=== PATIENT | male | born 1980 | race Caucasian/White ===

== ENCOUNTER 2016-08-26 18:16 | Emergency (ER) | payer SELFPAY ==
[2016-08-26 18:26] VITALS: BP 144/88
[2016-08-26] MEDS ORDERED: IBUPROFEN 800 MG TABLET PO ONE (18:28)
--- NOTE | 2016-08-26 18:28 | ER Document Report ---
ED Medical Screen (RME) - General Stated Complaint: TOOTH PAIN Notes: one week ago bottom right broken teeth with dental lizzette patient has an appointment with dentist on tuesday/tuesday I have greeted and performed a rapid initial assessment of this patient. A comprehensive ED assessment and evaluation of the patient, analysis of test results and completion of the medical decision making process will be conducted by additional ED providers. Physical Exam - Vital signs Vitals: Temp Pulse Resp BP Pulse Ox 97.9 F 79 16 144/88 H 99 08/26/16 18:25 08/26/16 18:25 08/26/16 18:25 08/26/16 18:25 08/26/16 18:25 Course - Vital Signs Vital signs: Temp Pulse Resp BP Pulse Ox 97.9 F 79 16 144/88 H 99 08/26/16 18:25 08/26/16 18:25 08/26/16 18:25 08/26/16 18:25 08/26/16 18:25
--- NOTE | 2016-08-26 18:57 | ER Document Report ---
ED General - General Chief Complaint: Toothache Stated Complaint: TOOTH PAIN Time seen by provider: 18:51 Mode of Arrival: Ambulatory Information source: Patient Notes: 36-year-old male complains about one week history of pain to right lower tooth. He reports he has a dental appointment in 5 days for evaluation of this. He denies fever, chills, nausea, vomiting, or other symptoms. He reports he had several other dental extractions in the past but no other teeth are bothering him now. Physical Exam: General: Alert, appears well. HEENT: Normocephalic. Atraumatic. PERRLA. Extraocular movements intact. Oropharynx clear. Multiple dental extractions. She has obvious fracture to tooth in the left upper jaw but this area is not tender. Extremities are moist. Patient has no erythema or swelling around the right lower jaw but it is tender to palpation diffusely area and there is no Kiet's angina or submental swelling to suggest deep tissue infection. There is no stridor or hoarseness or drooling. Neck: Supple. Non-tender. No adenopathy Respiratory: No respiratory distress. Clear and equal breath sounds bilaterally. Cardiovascular: Regular rate and rhythm. Abdominal: Normal Inspection. Soft, non-tender. No distension. Normal Bowel Sounds. Back: Non-tender. No deformity or step off. Extremities: Moves all four extremities. No gross deformity Neurological: Speech clear mentation normal Psychological: Normal affect. Normal Mood. Skin: Warm. Dry. Normal color. TRAVEL OUTSIDE OF THE [place] IN LAST 30 DAYS: No - Related Data Allergies/Adverse Reactions: No Known Allergies Allergy (Verified 08/26/16 18:30) Past Medical History - Social History Smoking Status: Current Every Day Smoker Chew tobacco use (# tins/day): No Frequency of alcohol use: None Drug Abuse: None Family History: Reviewed & Not Pertinent Patient has suicidal ideation: No Patient has homicidal ideation: No - Past Medical History Cardiac Medical History: Reports: None Renal/ Medical History: Denies: Hx Peritoneal Dialysis Review of Systems - Review of Systems Constitutional: denies: Chills, Fever EENT: denies: Ear pain, Throat pain Cardiovascular: denies: Chest pain Respiratory: denies: Cough, Short of breath Gastrointestinal: denies: Abdominal pain, Nausea, Vomiting Genitourinary: denies: Burning Musculoskeletal: denies: Back pain Skin: denies: Rash Hematologic/Lymphatic: denies: Swollen glands Neurological/Psychological: denies: Weakness, Numbness Physical Exam - Vital signs Vitals: Temp Pulse Resp BP Pulse Ox 97.9 F 79 16 144/88 H 99 08/26/16 18:25 08/26/16 18:25 08/26/16 18:25 08/26/16 18:25 08/26/16 18:25 Course - Re-evaluation Re-evalutation: 08/26/16 18:55 Patient has dental pain concerning for possible infection though there is no obvious swelling at this point. He'll be discharged on antibiotics and medication pain is counseled to follow with his dentist as scheduled next week - Vital Signs Vital signs: Temp Pulse Resp BP Pulse Ox 97.9 F 79 16 144/88 H 99 08/26/16 18:25 08/26/16 18:25 08/26/16 18:25 08/26/16 18:25 08/26/16 18:25 Discharge - Discharge Clinical Impression: Toothache Condition: Stable Disposition: HOME, SELF-CARE Additional Instructions: Toothache Your pain is due to dental decay. The tooth must be repaired in order for you to feel better. You will, therefore, be referred to a dentist. Severe swelling or drainage around a tooth usually means a deep dental abscess. This also requires evaluation and treatment by the dentist, but antibiotics may be prescribed while awaiting dental treatment. You should be rechecked immediately if you develop major swelling of the face, increasing pain, a lump in the jaw or gums, headache, or fever. Keep your dental appointment next week as scheduled Prescriptions: Penicillin V Potassium [Penicillin Vk 500 mg Tablet] 500 mg PO BID #20 tablet Tramadol HCl 50 mg PO BID #10 tablet
== END 2016-08-26 19:09 | disposition home or self-care (01) ==
LOC: ER 18:16
DX: K08.89 Other specified disorders of teeth and supporting structures (principal); F17.210 Nicotine dependence, cigarettes, uncomplicated
CPT/HCPCS: 99282

== ENCOUNTER 2016-09-09 06:39 | Emergency (ER) | payer SELFPAY ==
--- NOTE | 2016-09-09 10:06 | ER Document Report ---
HPI - HPI Patient complains to provider of: dental pain Onset: Last week Onset/Duration: Persistent Quality of pain: Achy, Sharp Pain Level: 5 Context: Patient complains of persistent dental pain that started last week. Patient was evaluated in emergency department and placed on an antibiotic for several days. Patient states that he only had the antibiotic prescription for about 4 days. Patient states that he did not get his tax refund check and he was unable to follow-up with the dentist. Patient complains of right lower jaw swelling. No fever. Associated Symptoms: Other - Right lower jaw tenderness Exacerbated by: Denies Relieved by: Denies Similar symptoms previously: Yes Recently seen / treated by doctor: No - ROS ROS below otherwise negative: Yes Systems Reviewed and Negative: Yes All other systems reviewed and negative - CONSTITUTIONAL Constitutional: DENIES: Fever - EENT Notes: Dental pain - GASTROINTESTINAL Gastrointestinal: DENIES: Nausea, Patient vomiting - DERM Skin Color: Normal Skin Problems: None Past Medical History - General Information source: Patient - Social History Smoking Status: Current Every Day Smoker Frequency of alcohol use: Rare Drug Abuse: None Occupation: none Lives with: Family Family History: Reviewed & Not Pertinent Patient has suicidal ideation: No Patient has homicidal ideation: No - Medical History Medical History: Other - Psoriasis Renal/ Medical History: Denies: Hx Peritoneal Dialysis Past Surgical History: Reports: Hx Appendectomy - Immunizations Hx Diphtheria, Pertussis, Tetanus Vaccination: Yes Vertical Provider Document - CONSTITUTIONAL Agree With Documented VS: Yes Exam Limitations: No Limitations General Appearance: WD/WN, No Apparent Distress - INFECTION CONTROL TRAVEL OUTSIDE OF THE [place] IN LAST 30 DAYS: No - HEENT HEENT: Atraumatic, Normocephalic. negative: Pharyngeal Exudate, Pharyngeal Tenderness, Pharyngeal Erythema, Tympanic Membrane Red, Tympanic Membrane Bulging Mouth Diagram: 1 - Tenderness, gingival induration, no sublingual or submental swelling. - NECK Neck: Normal Inspection, Supple. negative: Lymphadenopathy-Left, Lymphadenopathy-Right - RESPIRATORY Respiratory: Breath Sounds Normal, No Respiratory Distress, Chest Non-Tender O2 Sat by Pulse Oximetry: 99 - CARDIOVASCULAR Cardiovascular: Regular Rate, Regular Rhythm, No Murmur - BACK Back: Normal Inspection - MUSCULOSKELETAL/EXTREMETIES Musculoskeletal/Extremeties: BROCK MAY - NEURO Level of Consciousness: Awake, Alert, Appropriate Motor/Sensory: No Motor Deficit - DERM Integumentary: Warm, Dry, No Rash Course - Vital Signs Vital signs: Temp Pulse Resp BP Pulse Ox 98.1 F 70 18 158/86 H 99 09/09/16 06:43 09/09/16 06:43 09/09/16 06:43 09/09/16 06:43 09/09/16 06:43 Discharge - Discharge Clinical Impression: Infected dental caries Condition: Stable Disposition: HOME, SELF-CARE Instructions: Toothache ([facility]), Clindamycin ([facility]), Oral Narcotic Medication ([facility] ), Dental Infection or Abscess ([facility]), Dentist Additional Instructions: Return immediately for any new or worsening symptoms Followup with your dental care provider, call tomorrow to make a followup appointment Prescriptions: Clindamycin HCl [Cleocin 300 mg Capsule] 300 mg PO TID #21 capsule Naproxen [Naprosyn 250 Nmg Tablet] 1 tab PO BID #14 tablet Oxycodone HCl/Acetaminophen [Percocet 5-325 mg Tablet] 1 tab PO ASDIR PRN #15 tablet PRN Reason: Forms: Elevated Blood Pressure Referrals: [facility] [Provider Group] - Follow up as needed [facility] [Provider Group] - Follow up as needed
[2016-09-09 10:27] VITALS: BP 148/94
== END 2016-09-09 10:20 | disposition home or self-care (01) ==
LOC: ER 06:39
DX: K02.9 Dental caries, unspecified (principal); K04.7 Periapical abscess without sinus; F17.200 Nicotine dependence, unspecified, uncomplicated; L40.9 Psoriasis, unspecified
CPT/HCPCS: 99282

== ENCOUNTER 2017-05-12 15:03 | Emergency (ER) | payer SELFPAY ==
[2017-05-12 15:07] VITALS: BP 133/70
[2017-05-12] MEDS ORDERED: LIDOCAINE 1% INJ-PF (10 MG/ML) 30 ML SDV INJ ONE (15:49)
--- NOTE | 2017-05-12 15:57 | ER Document Report ---
ED Hand/Wrist Injury - General Chief Complaint: Laceration Stated Complaint: WRIST LACERATION Time Seen by Provider: 05/12/17 15:29 Mode of Arrival: Ambulatory Information source: Patient Notes: 37-year-old male presents to ED for laceration to his right wrist. He states he was trying to clean some trash up for his mother when he reached under the deck and caught his arm on a metal bracket under the deck causing a laceration. He states his last tetanus was about 6 months ago. He states his the mother wrapped his arm will good when it happened. TRAVEL OUTSIDE OF THE [place] IN LAST 30 DAYS: No - HPI Injury to: Wrist Onset: This afternoon Where: Home, Outdoors Timing: Still present Quality of pain: Sharp Severity: Mild Pain Level: 2 Context: Laceration - Related Data Allergies/Adverse Reactions: No Known Allergies Allergy (Verified 05/12/17 15:06) Past Medical History - General Information source: Patient - Social History Smoking Status: Current Every Day Smoker Cigarette use (# per day): Yes - Pack per day Chew tobacco use (# tins/day): No Smoking Education Provided: Yes - Less than 2 minutes Frequency of alcohol use: Rare Drug Abuse: None Occupation: [employer] Lives with: Family, Spouse/Significant other Family History: Arthritis, COPD, CVA, DM, Hypertension, Malignancy. denies: CAD , Hyperlipidemia, Thyroid Disfunction Patient has suicidal ideation: No Patient has homicidal ideation: No - Past Medical History Cardiac Medical History: Reports: None Pulmonary Medical History: Reports: None EENT Medical History: Reports: None Neurological Medical History: Reports: Hx Migraine Endocrine Medical History: Reports: None Renal/ Medical History: Reports: Hx Kidney Stones Malignancy Medical History: Reports None GI Medical History: Reports: None Musculoskeltal Medical History: Reports Hx Arthritis, Reports Hx Musculoskeletal Deformity, Reports Hx Musculoskeletal Trauma Skin Medical History: Reports None Psychiatric Medical History: Reports: Hx Attention Deficit Hyperactivity Disorder, Hx Post Traumatic Stress Disorder Traumatic Medical History: Reports: Hx Fractures - multiple Infectious Medical History: Reports: None Past Surgical History: Reports: Hx Appendectomy, Hx Orthopedic Surgery - skull repair - Immunizations Immunizations up to date: Yes Hx Diphtheria, Pertussis, Tetanus Vaccination: Yes - 2017 Review of Systems - Review of Systems Constitutional: No symptoms reported EENT: No symptoms reported Cardiovascular: No symptoms reported Respiratory: No symptoms reported Gastrointestinal: No symptoms reported Genitourinary: No symptoms reported Male Genitourinary: No symptoms reported Musculoskeletal: No symptoms reported Skin: Other - laceration right wrist Hematologic/Lymphatic: No symptoms reported Neurological/Psychological: No symptoms reported -: Yes All other systems reviewed and negative Physical Exam - Vital signs Vitals: Temp Pulse Resp BP Pulse Ox 97.7 F 93 20 133/70 H 98 05/12/17 15:06 05/12/17 15:06 05/12/17 15:06 05/12/17 15:06 05/12/17 15:06 Interpretation: Normal - General General appearance: Appears well, Alert - HEENT Head: Normocephalic, Atraumatic Eyes: Normal Pupils: PERRL - Respiratory Respiratory status: No respiratory distress Chest status: Nontender Breath sounds: Normal Chest palpation: Normal - Cardiovascular Rhythm: Regular Heart sounds: Normal auscultation Murmur: No - Abdominal Inspection: Normal Distension: No distension Bowel sounds: Normal Tenderness: Nontender Organomegaly: No organomegaly - Back Back: Normal, Nontender - Extremities General upper extremity: Normal color, Normal ROM, Normal temperature General lower extremity: Normal inspection, Nontender, Normal color, Normal ROM , Normal temperature, Normal weight bearing. No: Philippe's sign Wrist: Tender, Laceration Hand: Normal - Neurological Neuro grossly intact: Yes Cognition: Normal Orientation: AAOx4 Bath Coma Scale Eye Opening: Spontaneous Dusty Coma Scale Verbal: Oriented Dusty Coma Scale Motor: Obeys Commands Dusty Coma Scale Total: 15 Speech: Normal Motor strength normal: LUE, RUE, LLE, RLE Sensory: Normal - Psychological Associated symptoms: Normal affect, Normal mood - Skin Skin Temperature: Warm Skin Moisture: Dry Skin Color: Normal Course - Re-evaluation Re-evalutation: 05/12/17 16:41 Patient treated with Keflex prophylactically for this laceration to his wrist due to it being into a piece of metal under the house when cleaning up trash. Patient was also treated with a cock-up splint to prevent stress on the laceration and sutures. Patient stated his tetanus was within the year 2017 so he does not need a tetanus shot at this time. - Vital Signs Vital signs: Temp Pulse Resp BP Pulse Ox 97.7 F 93 20 133/70 H 98 05/12/17 15:06 05/12/17 15:06 05/12/17 15:06 05/12/17 15:06 05/12/17 15:06 Procedures - Immobilization Right Wrist Immobilizer type: Cock-up Performed by: RN Post-Proc Neuro Vasc Exam: Normal Alignment checked and good: Yes - Laceration/Wound Repair Right Wrist Time completed: 16:40 Wound length (cm): 3 Wound's Depth, Shape: Into muscle, Linear Laceration pre-procedure: Sterile PPE donned, Sterile drapes applied, Shur- Clens applied Anesthetic type: 1% Lidocaine Volume Anesthetic (mLs): 6 Wound explored: No foreign body removed, Contaminated Irrigated w/ Saline (mLs): 400 Wound Repaired With: Sutures Suture Size/Type: 4:0 Number of Sutures: 5 Layer Closure?: No Post-procedure wound care: Sterile dressing applied, Splint applied Post-procedure NV exam normal: Yes Complications: No Discharge - Discharge Clinical Impression: Laceration of right wrist Qualifiers: Encounter type: initial encounter Qualified Code(s): S61.511A - Laceration without foreign body of right wrist, initial encounter Condition: Stable Disposition: HOME, SELF-CARE Instructions: Family Physicians / Practices Additional Instructions: Hand Laceration A laceration on the hand can present special problems. It may be difficult to keep the wound dry. Motion of the fingers can disturb the healing edges. Your work may involve exposure to damaging chemicals or water. Keep the wound clean and dry. If you can't keep the cut dry, undisturbed, and free of chemical exposure, please discuss this with the doctor. If any water or chemical gets onto the dressing, remove it, blot the wound dry, then apply a fresh bandage. Dressings should be changed every day. If you feel the stitches pulling as you move the hand, a splint or other form of protection is needed. If any signs of infection occur (swelling, redness, increasing tenderness, red streaks, tender lumps in the armpit, or fever), see the doctor immediately. SOAP CLEANSING: Gently wash the wound daily using a mild soap (like Ivory, Phisoderm, Neutrogena). Use warm water, rubbing gently until all debris, ooze, and crusting have been washed from the wound. Allow to dry briefly (about 10 minutes) after cleaning. Repeat this cleansing at least three times a day for the first two days and then once or twice a day. ANTIBIOTIC OINTMENT PROTECTION: Your wounds are such that dressing them is not practical or optional. After cleansing, you should apply a thin coating of antibiotic ointment ( Bacitracin, not Neosporin) to the wounds at least three times daily. This lessens infection risk, and may decrease the amount of scarring. Use a q-tip or dull butter knife, not your finger, to apply this ointment. Any debris or ooze which builds up in the ointment should be gently rubbed off with a sterile gauze pad. Harder crusting may need to be gently scrubbed off with a clean wash cloth with soap and warm water, perhaps applying a warm, wet wash cloth to the wound for ten minutes first. Development of redness, severe itching, or blistering may mean allergy to the ointment. See the doctor. 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 PROPHYLACTIC ANTIBIOTIC: The antibiotics which have been prescribed are designed to decrease the risk of infection. Only certain types of wounds benefit from this -- the typical cut, scrape, or burn DOES NOT require antibiotics. Of course, infection can still occur despite the use of prophylactic antibiotics. Your wound will heal with less chance of an infectious complication if you take the medication as directed. The most important dose is the FIRST dose, so don't delay filling the prescription! FOLLOW-UP CARE: Please return in ___2__ days for an infection check and dressing change. Your sutures should be removed in ____10_ days. To facilitate a timely removal of your sutures, you may return to the Emergency Department at [facility]. You do not need to call for an appointment, but the best time to come in for suture removal is early in the morning. If you have been referred to another physician for follow-up care, call that physicians office for an appointment as you were instructed. If you experience a significant change in your laceration, or if you are concerned there may be an infection (swelling, redness, drainage, increasing tenderness, red streaks, tender lumps in the armpit or groin above the laceration, or fever) , return to the Emergency Department immediately re-evaluation. Prescriptions: Cephalexin Monohydrate [Keflex 500 mg Capsule] 500 mg PO Q6H 5 Days capsule Forms: Elevated Blood Pressure, Smoking Cessation Education, Return to Work
[2017-05-12] MEDS ORDERED: CEPHALEXIN 500 MG CAPSULE PO ONE (16:35)
== END 2017-05-12 16:52 | disposition home or self-care (01) ==
LOC: ER 15:03
PROC: 0HQDXZZ Repair Right Lower Arm Skin, External Approach (ICD-10-PCS; principal; 2017-05-12)
DX: S61.511A Laceration without foreign body of right wrist, initial encounter (principal); F17.210 Nicotine dependence, cigarettes, uncomplicated; W26.8XXA Contact with other sharp object(s), not elsewhere classified, initial encounter; Y92.007 Garden or yard of unspecified non-institutional (private) residence as the place of occurrence of the external cause; Z87.442 Personal history of urinary calculi
CPT/HCPCS: 99282; 12002; L3908; J3490

== ENCOUNTER 2017-11-17 17:21 | Emergency (ER) | payer MEDICAID ==
[2017-11-17 17:31] VITALS: BP 126/66
[2017-11-17] MEDS ORDERED: LIDOCAINE 2% VISCOUS SOLN 20 ML UDCUP PO ONE (17:31)
--- NOTE | 2017-11-17 17:32 | ER Document Report ---
HPI - HPI Pain Level: 4 Notes: Patient is a 37-year-old male with a history of anxiety and depression who presents to the ED complaining of a fractured tooth to #61 day. Patient states that the tooth is still loose half of it is intact. He has not had any abscess or purulent discharge. Patient has not been able to chew on food because of the pain, but is able to intake liquids and shakes. The pain does not radiate. He denies any drug allergies. Denies any headache, fever, neck pain, URI, sore throat, chest pain, palpitations, syncope, cough, shortness of breath, wheeze, dyspnea, abdominal pain, nausea/vomiting/diarrhea, urinary retention, dysuria, hematuria, or rash. - ROS Systems Reviewed and Negative: Yes All other systems reviewed and negative Past Medical History - Social History Smoking Status: Never Smoker Family History: Arthritis, COPD, CVA, DM, Hypertension, Malignancy Neurological Medical History: Reports: Hx Migraine Renal/ Medical History: Reports: Hx Kidney Stones. Denies: Hx Peritoneal Dialysis Musculoskeltal Medical History: Reports Hx Arthritis, Reports Hx Musculoskeletal Deformity, Reports Hx Musculoskeletal Trauma Psychiatric Medical History: Reports: Hx Attention Deficit Hyperactivity Disorder, Hx Post Traumatic Stress Disorder Traumatic Medical History: Reports: Hx Fractures - multiple Past Surgical History: Reports: Hx Appendectomy, Hx Orthopedic Surgery - skull repair - Immunizations Immunizations up to date: Yes Hx Diphtheria, Pertussis, Tetanus Vaccination: Yes - 2016 Vertical Provider Document - CONSTITUTIONAL Agree With Documented VS: Yes Notes: PHYSICAL EXAMINATION: GENERAL: Well-appearing, well-nourished and in no acute distress. HEAD: Atraumatic, normocephalic. EYES: Pupils equal round and reactive to light, extraocular movements intact, sclera anicteric, conjunctiva are normal. ENT: EAC clear b/l. TM's intact b/l without erythema, fluid, or perforation. Nares patent and without discharge. oropharynx clear without exudates. No tonsilar hypertrophy or erythema. Moist mucous membranes. No sinus tenderness. Uvula midline. No palatine shift. No tongue protrusion. No respiratory compromise. Mouth: Poor dentition. + moderate decay and mild gingivitis. No obvious abscess or discharge noted. No facial swelling. + tenderness to tooth #6 and it is loose. NECK: Normal range of motion, supple without lymphadenopathy. No rigidity/ meningismus. LUNGS: Breath sounds clear to auscultation bilaterally and equal. No wheezes rales or rhonchi. HEART: Regular rate and rhythm without murmurs, rubs, gallops. NEUROLOGICAL: Normal speech, normal gait. Normal sensory, motor exams PSYCH: Normal mood, normal affect. SKIN: Warm, Dry, normal turgor, no rashes or lesions noted. - INFECTION CONTROL TRAVEL OUTSIDE OF THE [place] IN LAST 30 DAYS: No Course - Re-evaluation Re-evalutation: 11/17/17 17:40 Patient is an afebrile, well-hydrated, 37-year-old male who presents to the ED with dental pain #6. Vitals are acceptable. Patient's tooth is cracked and loose as well as rotted. Viscous lidocaine given today. I will send him home with a prescription for penicillin as well. Advised patient that he needs to follow-up with a dentist tomorrow for extraction. Low suspicion for any meningitis, sepsis, peritonsillar/pharyngeal abscess, respiratory compromise, Kiet's, temporal arteritis, or other emergent systemic condition at this time. Patient is aware this condition can change from initial presentation and he needs to monitor symptoms closely. Conservative measures otherwise for symptoms. Call to schedule an appointment with a dentist for further evaluation and management. Recheck with your PCM this week as well. Return to the ED with any worsening/concerning symptoms otherwise as reviewed in discharge. Patient is in agreement. Eating - Vital Signs Vital signs: Temp Pulse Resp BP Pulse Ox 98.8 F 92 16 126/66 H 97 11/17/17 17:30 11/17/17 17:30 11/17/17 17:30 11/17/17 17:30 11/17/17 17:30 Discharge - Discharge Clinical Impression: Pain, dental Condition: Stable Disposition: HOME, SELF-CARE Instructions: Penicillin V K ([facility]), Toothache ([facility]) Additional Instructions: [place] and floss twice daily Maintain fluid intake Take antibiotics as directed Mouthwash, salt water gargles, peroxide rinse as needed Tylenol/ibuprofen as needed Recheck with PCM this week Call today/tomorrow and schedule an appointment with your dentist for further evaluation Return to the ED with any worsening symptoms and/or development of fever, headache, facial swelling, swelling of lips/tongue/throat, trouble swallowing, drooling, hoarseness, neck pain/stiffness, chest pain, palpitations, syncope, shortness of breath, trouble breathing, abdominal pain, n/v/d, numbness/tingling , or other worsening symptoms that are concerning to you. Prescriptions: Penicillin V Potassium [Penicillin Vk 250 mg Tablet] 500 mg PO BID #40 tablet Forms: Elevated Blood Pressure, Smoking Cessation Education Referrals: [facility] [Provider Group] - Follow up as needed SARA HONG MD [ACTIVE STAFF] - Follow up as needed
== END 2017-11-17 17:53 | disposition home or self-care (01) ==
LOC: ER 17:21
DX: K08.9 Disorder of teeth and supporting structures, unspecified (principal); Z87.442 Personal history of urinary calculi
CPT/HCPCS: 99282; J3490

== ENCOUNTER 2017-12-08 15:53 | Emergency (ER) | payer MEDICAID ==
[2017-12-08] MEDS ORDERED: FENTANYL CITRATE INJ/PF 100 MCG/2 ML AMPUL IV ONE (16:37)
--- NOTE | 2017-12-08 16:45 | ER Document Report ---
ED Medical Screen (RME) - General Chief Complaint: Fall Injury Stated Complaint: FALL/ BACK PAIN Time Seen by Provider: 12/08/17 16:32 Notes: RAPID MEDICAL EVALUATION DISCLOSURE I have seen this patient as part of a Rapid Medical Evaluation and, if applicable, placed any initially appropriate orders. The patient will be seen and fully evaluated, including a full history and physical exam, by a provider ( in Main ED or Fast Track) when a room becomes available. 37-year-old male here status post fall from a roof 20 feet high just prior to arrival. He landed on his feet however fell backwards onto his back and since then has been having severe mid and low back pain since then. He did not hit his head/neck, he reports. He does not have any chest pain shortness of breath neck pain headache foot pain numbness tingling weakness. Tried taking a BC powder for the pain. EXAM Head atraumatic No cervical midline spine TTP Exquisite midline thoracic (T3-T12) and rendon lumbar midline spine TTP Strength 5/5 with intact sensation BLEs TRAVEL OUTSIDE OF THE [place] IN LAST 30 DAYS: No - Related Data Allergies/Adverse Reactions: No Known Allergies Allergy (Verified 12/08/17 16:29) Past Medical History Neurological Medical History: Reports: Hx Migraine Renal/ Medical History: Reports: Hx Kidney Stones. Denies: Hx Peritoneal Dialysis Musculoskeltal Medical History: Reports Hx Arthritis, Reports Hx Musculoskeletal Deformity, Reports Hx Musculoskeletal Trauma Psychiatric Medical History: Reports: Hx Attention Deficit Hyperactivity Disorder, Hx Post Traumatic Stress Disorder Traumatic Medical History: Reports: Hx Fractures - multiple Past Surgical History: Reports: Hx Appendectomy, Hx Orthopedic Surgery - skull repair - Immunizations Immunizations up to date: Yes Hx Diphtheria, Pertussis, Tetanus Vaccination: Yes - 2016 Physical Exam - Vital signs Vitals: Temp Pulse Resp BP Pulse Ox 97.9 F 91 16 134/82 H 95 12/08/17 16:13 12/08/17 16:13 12/08/17 16:13 12/08/17 16:13 12/08/17 16:13 Course - Vital Signs Vital signs: Temp Pulse Resp BP Pulse Ox 97.9 F 91 16 134/82 H 95 12/08/17 16:13 12/08/17 16:13 12/08/17 16:13 12/08/17 16:13 12/08/17 16:13
--- NOTE | 2017-12-08 17:18 | RADIOLOGY REPORT (SQ) ---
EXAM DESCRIPTION: CT CERVICAL SPINE WITHOUT COMPLETED DATE/TIME: 12/08/2017 5:06 pm REASON FOR STUDY: 20 foot fall; eval fx COMPARISON: None. TECHNIQUE: Axial images acquired through the cervical spine without intravenous contrast. Images re viewed with lung, soft tissue and bone windows. Reconstructed coronal and sagittal MPR images review ed. Images stored on PACS. All CT scanners at this facility use dose modulation, iterative reconstruction, and/or weight based d osing when appropriate to reduce radiation dose to as low as reasonably achievable (ALARA). [facility]: Dose Right [facility]: CareDose [facility]: Dose Right [facility]: Teradose 4D [facility]: Smart [employer] RADIATION DOSE: CT Rad equipment meets quality standard of care and radiation dose reduction techniq ues were employed. CTDIvol: 18.3 mGy. DLP: 386 mGy-cm. mGy. LIMITATIONS: None. FINDINGS: ALIGNMENT: Anatomic. MINERALIZATION: Normal. VERTEBRAL BODIES: No fractures or dislocation. DISCS: C5-6 degenerative changes. FACETS, LATERAL MASSES, POSTERIOR ELEMENTS: No fractures. No dislocation. No acute findings. HARDWARE: None in the spine. VISUALIZED RIBS: No fractures. LUNG APICES AND SOFT TISSUES: No significant or acute findings. OTHER: No other significant finding. IMPRESSION: NO ACUTE OR SIGNIFICANT FINDINGS IN THE CERVICAL SPINE. TECHNICAL DOCUMENTATION: JOB ID: [id number] Quality ID # [id number]: Final reports with documentation of one or more dose reduction techniques (e.g., Au tomated exposure control, adjustment of the mA and/or kV according to patient size, use of iterative reconstruction technique) 2010 [employer]- All Rights Reserved Reading location - IP/workstation name: [email or web address]
--- NOTE | 2017-12-08 17:20 | RADIOLOGY REPORT (SQ) ---
EXAM DESCRIPTION: CT THORACIC SPINE WITHOUT COMPLETED DATE/TIME: 12/08/2017 5:06 pm REASON FOR STUDY: 20 foot fall onto feet; eval vertebral fx COMPARISON: None. TECHNIQUE: Axial images acquired through the thoracic spine without intravenous contrast. Images re viewed with lung, soft tissue and bone windows. Reconstructed coronal and sagittal MPR images review ed. Images stored on PACS. All CT scanners at this facility use dose modulation, iterative reconstruction, and/or weight based d osing when appropriate to reduce radiation dose to as low as reasonably achievable (ALARA). [facility]: Dose Right [facility]: CareDose [facility]: Dose Right [facility]: Teradose 4D [facility]: Smart [employer] RADIATION DOSE: CT Rad equipment meets quality standard of care and radiation dose reduction techniq ues were employed. CTDIvol: 97.5 mGy. DLP: 3478 mGy-cm. mGy. LIMITATIONS: None. FINDINGS: VISUALIZED LUNGS: No acute opacities. No pneumothorax. SOFT TISSUES: No soft tissue swelling. No masses. VERTEBRAL BODIES: No fractures. No dislocation. No acute findings. DISCS: No significant disc space narrowing. ALIGNMENT: Normal. TRANSVERSE PROCESSES, POSTERIOR ELEMENTS: No fractures. No dislocation. No acute findings. HARDWARE: None in the spine. VISUALIZED RIBS: No fractures. OTHER: No other significant finding. IMPRESSION: NORMAL CT OF THE THORACIC SPINE. TECHNICAL DOCUMENTATION: JOB ID: [id number] Quality ID # [id number]: Final reports with documentation of one or more dose reduction techniques (e.g., Au tomated exposure control, adjustment of the mA and/or kV according to patient size, use of iterative reconstruction technique) 2010 [employer]- All Rights Reserved Reading location - IP/workstation name: [email or web address]
--- NOTE | 2017-12-08 17:23 | RADIOLOGY REPORT (SQ) ---
EXAM DESCRIPTION: CT LUMBAR SPINE WITHOUT COMPLETED DATE/TIME: 12/08/2017 5:06 pm REASON FOR STUDY: 20 foot fall onto feet; eval vertebral fx COMPARISON: None. TECHNIQUE: Axial images acquired through the lumbar spine without intravenous contrast. Images revi ewed with lung, soft tissue and bone windows. Reconstructed coronal and sagittal MPR images reviewed . All images stored on PACS. All CT scanners at this facility use dose modulation, iterative reconstruction, and/or weight based d osing when appropriate to reduce radiation dose to as low as reasonably achievable (ALARA). [facility]: Dose Right [facility]: CareDose [facility]: Dose Right [facility]: Teradose 4D [facility]: [employer] RADIATION DOSE: mGy. LIMITATIONS: None. FINDINGS: SEGMENTATION: Normal. No transitional anatomy. ALIGNMENT: Normal. VERTEBRAL BODIES: No fractures. No dislocation. No acute findings. DISCS: No significant protrusions. Study limited by lack of intrathecal contrast. PEDICLES, TRANSVERSE PROCESSES: No fractures. No dislocation. No acute findings. FACETS, POSTERIOR ELEMENTS: No fractures. No dislocation. No spinal stenosis. HARDWARE: None in the spine. VISUALIZED RIBS: No fractures. SOFT TISSUES: No significant or acute finding in adjacent soft tissues. OTHER: No other significant finding. IMPRESSION: NORMAL CT OF THE LUMBAR SPINE. TECHNICAL DOCUMENTATION: JOB ID: [id number] Quality ID # [id number]: Final reports with documentation of one or more dose reduction techniques (e.g., Au tomated exposure control, adjustment of the mA and/or kV according to patient size, use of iterative reconstruction technique) 2010 [employer]- All Rights Reserved Reading location - IP/workstation name: [email or web address]
--- NOTE | 2017-12-08 17:26 | RADIOLOGY REPORT (SQ) ---
EXAM DESCRIPTION: FOOT BILATERAL 2 VIEWS COMPLETED DATE/TIME: 12/08/2017 5:16 pm REASON FOR STUDY: 20 foot fall; eval calcaneal fx COMPARISON: None. NUMBER OF VIEWS: Two views right foot. Two views left foot. TECHNIQUE: AP and lateral radiographic images acquired of the right and left foot. LIMITATIONS: None. FINDINGS: MINERALIZATION: Normal. BONES: No acute fracture or dislocation. No worrisome bone lesions. JOINTS: No effusions. SOFT TISSUES: No soft tissue swelling. No foreign body. OTHER: No other significant finding. IMPRESSION: Normal TECHNICAL DOCUMENTATION: JOB ID: [id number] [employer]- All Rights Reserved Reading location - IP/workstation name: [email or web address]
--- NOTE | 2017-12-08 17:27 | RADIOLOGY REPORT (SQ) ---
EXAM DESCRIPTION: CHEST 2 VIEWS COMPLETED DATE/TIME: 12/08/2017 5:16 pm REASON FOR STUDY: s/p fall; eval ptx COMPARISON: None. EXAM PARAMETERS: NUMBER OF VIEWS: two views TECHNIQUE: Digital Frontal and Lateral radiographic views of the chest acquired. RADIATION DOSE: NA LIMITATIONS: none FINDINGS: LUNGS AND PLEURA: No opacities, masses or pneumothorax. No pleural effusion. MEDIASTINUM AND HILAR STRUCTURES: No masses or contour abnormalities. HEART AND VASCULAR STRUCTURES: Heart normal size. No evidence for failure. BONES: No acute findings. HARDWARE: None in the chest. OTHER: No other significant finding. IMPRESSION: NO ACUTE RADIOGRAPHIC FINDING IN THE CHEST. TECHNICAL DOCUMENTATION: JOB ID: [id number] [employer]- All Rights Reserved Reading location - IP/workstation name: [email or web address]
[2017-12-08] MEDS ORDERED: RINGERS SOLUTION,LACTATED 1,000 ML IV ONE (17:48)
--- NOTE | 2017-12-08 17:51 | ER Document Report ---
ED General - General Chief Complaint: Fall Injury Stated Complaint: FALL/ BACK PAIN Time Seen by Provider: 12/08/17 16:32 Mode of Arrival: Ambulatory Information source: Patient Notes: This is a 37-year-old man that presents to the emergency room with back pain after falling off a roof. He is now says that it was brought out 12 feet and he slipped off the roof landing on his feet and then rolling onto his buttocks and then back. He was able to ambulate and then drive to the hospital. He complains of mostly mid to lower back pain. TRAVEL OUTSIDE OF THE [place] IN LAST 30 DAYS: No - HPI Onset: Just prior to arrival Onset/Duration: Sudden Quality of pain: Dull Severity: Moderate Pain Level: 3 Associated symptoms: denies: Chills, Fever, Shortness of breath Exacerbated by: Movement Relieved by: Remaining still Similar symptoms previously: No Recently seen / treated by doctor: No - Related Data Allergies/Adverse Reactions: No Known Allergies Allergy (Verified 12/08/17 16:29) Past Medical History - General Information source: Patient - Social History Smoking Status: Current Every Day Smoker Cigarette use (# per day): Yes - 1 pack per day Chew tobacco use (# tins/day): No Frequency of alcohol use: Occasional Drug Abuse: Marijuana Lives with: Family Family History: Arthritis, COPD, CVA, DM, Hypertension, Malignancy Patient has suicidal ideation: No Patient has homicidal ideation: No Neurological Medical History: Reports: Hx Migraine Renal/ Medical History: Reports: Hx Kidney Stones. Denies: Hx Peritoneal Dialysis Musculoskeltal Medical History: Reports Hx Arthritis, Reports Hx Musculoskeletal Deformity, Reports Hx Musculoskeletal Trauma Psychiatric Medical History: Reports: Hx Attention Deficit Hyperactivity Disorder, Hx Post Traumatic Stress Disorder Traumatic Medical History: Reports: Hx Fractures - multiple Past Surgical History: Reports: Hx Appendectomy, Hx Orthopedic Surgery - skull repair - Immunizations Immunizations up to date: Yes Hx Diphtheria, Pertussis, Tetanus Vaccination: Yes - 2017 Review of Systems - Review of Systems Constitutional: denies: Chills, Fever EENT: No symptoms reported Cardiovascular: No symptoms reported Respiratory: No symptoms reported Gastrointestinal: No symptoms reported Genitourinary: No symptoms reported Male Genitourinary: No symptoms reported Musculoskeletal: See HPI Skin: No symptoms reported Hematologic/Lymphatic: No symptoms reported Neurological/Psychological: No symptoms reported Physical Exam - Vital signs Vitals: Temp Pulse Resp BP Pulse Ox 97.9 F 91 16 134/82 H 95 12/08/17 16:13 12/08/17 16:13 12/08/17 16:13 12/08/17 16:13 12/08/17 16:13 Notes: Physical exam: GENERAL: 37-year-old man, alert and oriented 3, no acute distress. HEAD: Atraumatic, normocephalic. EYES: Pupils equal round and reactive to light, extraocular movements intact, sclera anicteric, conjunctiva are normal. ENT: TMs normal, nares patent, oropharynx clear without exudates. Moist mucous membranes. NECK: Normal range of motion, supple without obvious mass or JVD. LUNGS: Breath sounds clear to auscultation bilaterally and equal. No wheezes rales or rhonchi. HEART: Regular rate and rhythm without murmurs, rubs or gallops. ABDOMEN: Soft, normoactive bowel sounds. No tenderness to palpation. No guarding, no rebound. No masses appreciated. Back: No cervical spine tenderness. Patient has tenderness to the mid thoracic and upper lumbar spine without crepitus or step-off. Patient has no tenderness to the lower lumbar or sacrum and has good sensory around the perirectal area EXTREMITIES: Normal range of motion, no pitting or edema. No clubbing or cyanosis. Patient has minimal pain over the midfoot of the right foot. There is no calcaneal tenderness over either right or left foot. NEUROLOGICAL: Cranial nerves II through XII grossly intact. Normal speech, moving all extremities. Sensory intact PSYCH: Normal mood, normal affect. SKIN: Warm, Dry, normal turgor, no rashes or lesions noted. Course - Vital Signs Vital signs: Temp Pulse Resp BP Pulse Ox 97.9 F 91 19 136/90 H 99 12/08/17 16:13 12/08/17 16:13 12/08/17 20:03 12/08/17 20:03 12/08/17 20:03 - Diagnostic Test Radiology reviewed: Image reviewed, Reports reviewed - CT of the cervical spine , thoracic spine and lumbar spine shows no acute fracture. X-rays of the feet show no acute bony injury. Discharge - Discharge Clinical Impression: Back pain status post fall Condition: Stable Disposition: HOME, SELF-CARE Additional Instructions: As we discussed, the CT of the back spine showed no obvious fractures. Given the mechanism of injury today, I would expect you to have some pain for the next week or 2. Take it easy over the next several days. Drink plenty of fluids. Take the pain medicines as needed. Take ibuprofen every 6 hours. Return to the emergency room for worsening pain, abdominal pain, weakness to the lower legs, decreased sensation to the lower legs or any problems with your bowel or bladder function. Prescriptions: Oxycodone HCl/Acetaminophen [Percocet 5-325 mg Tablet] 1 - 2 tab PO ASDIR PRN # 25 tablet PRN Reason: Forms: Return to Work Referrals: MONA DE LEON MD [Primary Care Provider] - Follow up as needed
[2017-12-08 20:07] VITALS: BP 136/90
== END 2017-12-08 20:08 | disposition home or self-care (01) ==
LOC: ER 15:53
DX: M54.5 Low back pain (principal); W13.2XXA Fall from, out of or through roof, initial encounter; Y92.008 Other place in unspecified non-institutional (private) residence as the place of occurrence of the external cause; F17.210 Nicotine dependence, cigarettes, uncomplicated
CPT/HCPCS: 99284; 96361; 96374; 71046; 73620; 72125; 72128; 72131; J3010; J7120

== ENCOUNTER 2018-03-16 21:21 | Emergency (ER) | payer MEDICAID ==
[2018-03-16 21:33] VITALS: BP 116/63
--- NOTE | 2018-03-16 23:02 | ER Document Report ---
HPI - HPI Patient complains to provider of: Finger pain Onset: Other - 6 days ago injury but the pain started yesterday Onset/Duration: Worse Pain Level: 4 Context: 37-year-old nondiabetic male injured his fourth right volar finger with a drill bit 6 days ago. It was doing fine until he used the drill yesterday at work and now it is more swollen and painful. No fever or chills. It feels better when it slightly bent. Associated Symptoms: None Exacerbated by: Movement - extending the finger fully Relieved by: Denies Similar symptoms previously: No Recently seen / treated by doctor: No - ROS ROS below otherwise negative: Yes Systems Reviewed and Negative: Yes All other systems reviewed and negative <EMILIE ORTIZ - Last Filed: 03/17/18 01:02> Past Medical History - General Information source: Patient - Social History Smoking Status: Current Every Day Smoker Lives with: Family Family History: Arthritis, COPD, CVA, DM, Hypertension, Malignancy Neurological Medical History: Reports: Hx Migraine Renal/ Medical History: Reports: Hx Kidney Stones. Denies: Hx Peritoneal Dialysis Musculoskeletal Medical History: Reports Hx Arthritis, Reports Hx Musculoskeletal Deformity, Reports Hx Musculoskeletal Trauma Psychiatric Medical History: Reports: Hx Attention Deficit Hyperactivity Disorder, Hx Post Traumatic Stress Disorder Traumatic Medical History: Reports: Hx Fractures - multiple Past Surgical History: Reports: Hx Appendectomy, Hx Orthopedic Surgery - skull repair - Immunizations Immunizations up to date: Yes Hx Diphtheria, Pertussis, Tetanus Vaccination: Yes - 2016 <EMILIE ORTIZ - Last Filed: 03/17/18 01:02> Vertical Provider Document - CONSTITUTIONAL Agree With Documented VS: Yes Exam Limitations: No Limitations - INFECTION CONTROL TRAVEL OUTSIDE OF THE [place] IN LAST 30 DAYS: No - MUSCULOSKELETAL/EXTREMETIES Musculoskeletal/Extremeties: Tender - Dorsal medial lateral middle phalanx of the right hand with crusted puncture wound. 2 mm surrounding hypopigmented skin and the rest is red tender and edematous. When he extends his finger it hurts at the PIP joint volar finger. - NEURO Level of Consciousness: Awake Motor/Sensory: No Motor Deficit, No Sensory Deficit <EMILIE ORTIZ - Last Filed: 03/17/18 01:02> Course - Vital Signs Vital signs: Temp Pulse Resp BP Pulse Ox 98.1 F 80 18 116/63 97 03/16/18 21:31 03/16/18 21:31 03/16/18 21:31 03/16/18 21:31 03/16/18 21:31 <AMINA MONCADA - Last Filed: 03/17/18 00:47> - Re-evaluation Re-evalutation: 03/17/18 01:[address] Moncada to have him come look at the finger for management. 03/17/18 01:02 Dr. Rosales examined the patient and call Dr. Story because he is concerned about flexor tenosynovitis. We have started him on Keflex and Septra and he will see Dr. Story at 8 AM tomorrow am - Vital Signs Vital signs: Temp Pulse Resp BP Pulse Ox 98.1 F 80 18 116/63 97 03/16/18 21:31 03/16/18 21:31 03/16/18 21:31 03/16/18 21:31 03/16/18 21:31 <EMILIE ORTIZ - Last Filed: 03/17/18 01:02> Discharge <AMINA MONCADA - Last Filed: 03/17/18 00:47> <EMILIE ORTIZ - Last Filed: 03/17/18 01:02> - Discharge Clinical Impression: Finger infection Condition: Good Disposition: HOME, SELF-CARE Additional Instructions: Please go to Dr. Story's office at 8am this morning. Take the antibiotic as prescribed. please return to [facility] ER if you develop worsening swelling, fevers, or increasing pain in your finger or hand. Prescriptions: Cephalexin Monohydrate [Keflex 500 mg Capsule] 500 mg PO Q6H 7 Days capsule Sulfamethoxazole/Trimethoprim [Bactrim Ds Tablet] 1 each PO BID #14 tablet Forms: Return to Work Referrals: MEREDITH STORY MD [ACTIVE STAFF] - 03/17/18 (go to Dr. Story's office at 8am this morning.)
--- NOTE | 2018-03-16 23:47 | RADIOLOGY REPORT (SQ) ---
3 VIEWS OF THE RIGHT HAND HISTORY: Injury to hand with drill bit. Concern for infection. COMPARISON: None. FINDINGS/IMPRESSION: No acute fracture or malalignment. Joint spaces are preserved. Mild soft tissue swelling is present. No radiographic evidence of osteomyelitis. If there is high clinical concern, consider MRI or bone scintigraphy for further evaluation.
[2018-03-17] MEDS ORDERED: CEPHALEXIN 500 MG CAPSULE PO ONE (00:45)
[2018-03-17] MEDS ORDERED: SULFAMETHOXAZOLE/TRIMETHOPRIM 800-160 MG TABLET PO ONE (00:45)
--- NOTE | 2018-03-17 01:04 | ER Document Report ---
Doctor's Note Notes: 03/17/18 00:59 Patient was initially seen by the nurse practitioner, Junie Castillo. She asked me to come see the patient. Patient has swelling over the right fourth digit and she wanted me to determine whether or not this could be infectious or just inflammatory from injury. Patient said a drill bit went into the palmar aspect of that finger several days ago. At first he did not have any problems and then today it swelled up. He therefore came to the ER. On exam patient does have swelling that is mostly localized just to the palmar aspect of the middle phalanx of the right fourth digit. Patient said he had a tetanus shot approximately 4 years ago. Denies any fevers. He is able flex and extend his finger but does have some pain with flexion. He has minimal tenderness to palpation over the flexor tendon. Almost all his pain is localized to the palmar aspect of the middle phalanx. The proximal phalanx and palmar aspect of the hand are only very minimally tender and there is no redness or streaking going into the hand. I do not think the patient has flexor tenosynovitis yet however I think he is at risk of developing this. I therefore called orthopedist, Dr. Story. Requested patient be seen tomorrow. Dr. Story said he would see the patient in his office at 8 a.m. I did discuss this with the patient and he agrees to go see Dr. Story. Patient will be started on antibiotics. Patient to return to the ER if he has worsening swelling, spreading redness, or if he has worsening pain in his hand or feels that he is having any spreading infection. Patient agrees with plan and will be discharged home.
== END 2018-03-17 01:22 | disposition home or self-care (01) ==
LOC: ER 21:21
DX: S61.232A Puncture wound without foreign body of right middle finger without damage to nail, initial encounter (principal); L08.9 Local infection of the skin and subcutaneous tissue, unspecified; M79.644 Pain in right finger(s); F17.200 Nicotine dependence, unspecified, uncomplicated; W31.1XXA Contact with metalworking machines, initial encounter
CPT/HCPCS: 99283; 73130; J3490

== ENCOUNTER 2018-04-23 14:46 | Emergency (ER) | payer MEDICAID ==
[2018-04-23 14:56] VITALS: BP 123/75
[2018-04-23] MEDS ORDERED: IBUPROFEN 800 MG TABLET PO ONE (16:37)
[2018-04-23] MEDS ORDERED: CEFTRIAXONE INJ 1000 MG VIAL IM ONE (16:37)
[2018-04-23] MEDS ORDERED: LIDOCAINE 1% INJ-PF (10 MG/ML) 30 ML SDV INJ ONE (16:37)
[2018-04-23] MEDS ORDERED: TRAMADOL HCL 50 MG TABLET PO ONE (16:37)
[2018-04-23] MEDS ORDERED: SULFAMETHOXAZOLE/TRIMETHOPRIM 800-160 MG TABLET PO ONE (16:37)
--- NOTE | 2018-04-23 16:45 | ER Document Report ---
HPI - HPI Patient complains to provider of: Right hand pain Onset: Yesterday Onset/Duration: Gradual Quality of pain: Achy Pain Level: 4 Context: Patient states that he was working underneath a house pulling insulation out and is concerned that he may have been bit by an insect to his right hand. Patient denies any known injury although it was working without wearing gloves. Patient complains of an open wound to the hand that has some mild swelling and erythema to the area. Patient denies any fever. Tetanus immunization is currently up-to-date. Associated Symptoms: Other - Right hand pain. denies: Fever Exacerbated by: Movement Relieved by: Denies Similar symptoms previously: No Recently seen / treated by doctor: No - ROS ROS below otherwise negative: Yes Systems Reviewed and Negative: Yes All other systems reviewed and negative - CONSTITUTIONAL Constitutional: DENIES: Fever - NEURO Neurology: DENIES: Weakness - GASTROINTESTINAL Gastrointestinal: DENIES: Nausea - MUSCULOSKELETAL Musculoskeletal: REPORTS: Extremity pain, Swelling - DERM Skin Color: Erythema Skin Problems: Ulcer Past Medical History - General Information source: Patient - Social History Smoking Status: Current Every Day Smoker Frequency of alcohol use: Occasional Drug Abuse: Marijuana Occupation: Metal building construction Family History: Arthritis, COPD, CVA, DM, Hypertension, Malignancy Patient has suicidal ideation: No Patient has homicidal ideation: No Neurological Medical History: Reports: Hx Migraine Renal/ Medical History: Reports: Hx Kidney Stones. Denies: Hx Peritoneal Dialysis Musculoskeletal Medical History: Reports Hx Arthritis, Reports Hx Musculoskeletal Deformity, Reports Hx Musculoskeletal Trauma Psychiatric Medical History: Reports: Hx Attention Deficit Hyperactivity Disorder, Hx Post Traumatic Stress Disorder Traumatic Medical History: Reports: Hx Fractures - multiple Past Surgical History: Reports: Hx Appendectomy, Hx Orthopedic Surgery - skull repair - Immunizations Immunizations up to date: Yes Hx Diphtheria, Pertussis, Tetanus Vaccination: Yes - 2017 [facility] Provider Document - CONSTITUTIONAL Agree With Documented VS: Yes Exam Limitations: No Limitations General Appearance: WD/WN, No Apparent Distress - INFECTION CONTROL TRAVEL OUTSIDE OF THE [place] IN LAST 30 DAYS: No - HEENT HEENT: Atraumatic, Normocephalic - NECK Neck: Normal Inspection - RESPIRATORY Respiratory: Breath Sounds Normal, No Respiratory Distress - CARDIOVASCULAR Cardiovascular: Regular Rate, Regular Rhythm Pulses: Normal: Radial - MUSCULOSKELETAL/EXTREMETIES Musculoskeletal/Extremeties: MAEW, FROM, Tender - Right hand tenderness to webspace between right fourth and fifth finger, patient with open wound to webspace with surrounding erythema, no purulent drainage noted, no lymphangitis , Edema - NEURO Level of Consciousness: Awake, Alert, Appropriate Motor/Sensory: No Motor Deficit - DERM Integumentary: Warm, Dry. negative: Abscess Notes: Erythema surrounding open wound to webspace of right hand between fourth and fifth fingers, erythema extends to dorsal aspect of right hand about 2 cm Course - Vital Signs Vital signs: Temp Pulse Resp BP Pulse Ox 98.6 F 90 18 123/75 99 04/23/18 14:55 04/23/18 14:55 04/23/18 14:55 04/23/18 14:55 04/23/18 14:55 - Diagnostic Test Radiology reviewed: Pending, Image reviewed Discharge - Discharge Clinical Impression: Cellulitis of hand, right Condition: Stable Disposition: HOME, SELF-CARE Instructions: Cellulitis ([facility]), Cephalexin ([facility]), Dressing Instructions for Open Wounds ([facility]), Rocephin ([facility]), Trimethoprim-Sulfa ([facility]) Additional Instructions: Return immediately for any new or worsening symptoms Followup with your primary care provider, call tomorrow to make a followup appointment Keep wound covered as it continues to heal Return immediately for any worsening signs of infection such as redness, streaks , swelling, fever or purulent drainage. Return in 2 days for wound recheck Prescriptions: Cephalexin Monohydrate [Keflex 500 mg Capsule] 500 mg PO Q6H 7 Days capsule Mupirocin [Bactroban 2% Ointment 22 gm] 1 applic TP TID #22 gm Naproxen [Naprosyn 250 Nmg Tablet] 1 tab PO BID #14 tablet Sulfamethoxazole/Trimethoprim [Bactrim Ds Tablet] 1 each PO BID #20 tablet Forms: Return to Work Referrals: JATINDER LESLIE DO [ACTIVE STAFF] - Follow up as needed
--- NOTE | 2018-04-23 18:13 | RADIOLOGY REPORT (SQ) ---
EXAM DESCRIPTION: HAND RIGHT 3 VIEWS COMPLETED DATE/TIME: 04/23/2018 5:24 pm REASON FOR STUDY: hand pain, ?PW spider bite, swelling COMPARISON: None. EXAM PARAMETERS: NUMBER OF VIEWS: Three views. TECHNIQUE: AP, lateral and oblique radiographic images acquired of the right hand. LIMITATIONS: None. FINDINGS: MINERALIZATION: Normal. BONES: No acute fracture or dislocation. No worrisome bone lesions. JOINTS: No effusions. SOFT TISSUES: No soft tissue swelling. No foreign body. OTHER: No other significant finding. IMPRESSION: NEGATIVE STUDY OF THE RIGHT HAND. NO RADIOGRAPHIC EVIDENCE OF ACUTE INJURY. TECHNICAL DOCUMENTATION: JOB ID: [id number] [employer] All Rights Reserved Reading location - IP/workstation name: [email or web address]
== END 2018-04-23 18:27 | disposition home or self-care (01) ==
LOC: ER 14:46
DX: L03.113 Cellulitis of right upper limb (principal); M79.641 Pain in right hand; F17.200 Nicotine dependence, unspecified, uncomplicated; Z87.442 Personal history of urinary calculi
CPT/HCPCS: 99283; 73130; J3490 ×3; J0696

== ENCOUNTER 2018-08-05 01:57 | Emergency (ER) | payer MEDICAID ==
[2018-08-05] MEDS ORDERED: IBUPROFEN 600 MG TABLET PO ONE (04:17)
--- NOTE | 2018-08-05 04:24 | RADIOLOGY REPORT (SQ) ---
EXAM DESCRIPTION: XR KNEE 4 OR MORE VIEWS COMPLETED DATE/TME: 08/05/2018 00:00 CLINICAL HISTORY: 38 years Male, injury COMPARISON: None. Findings: Bones, joints, and soft tissues of the LEFT XR KNEE 4 VIEWS appear intact. IMPRESSION: No acute findings.
--- NOTE | 2018-08-05 04:34 | ER Document Report ---
HPI - HPI Patient complains to provider of: Left knee pain Time Seen by Provider: 08/05/18 03:38 Pain Level: 5 Context: Patient is a 38-year-old male presents to the emergency department complaining of generalized left knee pain. Patient states prior to arrival he was wrestling with his son. States he thinks he bent his left knee a weird way and now has pain when putting pressure on it. Patient denies any other injuries. Past medical history: None medications: None Allergies: None - MUSCULOSKELETAL Musculoskeletal: REPORTS: Extremity pain - L knee Past Medical History - General Information source: Patient - Social History Smoking Status: Current Every Day Smoker Family History: Arthritis, COPD, CVA, DM, Hypertension, Malignancy Patient has suicidal ideation: No Patient has homicidal ideation: No Neurological Medical History: Reports: Hx Migraine Renal/ Medical History: Reports: Hx Kidney Stones. Denies: Hx Peritoneal Dialysis Musculoskeletal Medical History: Reports Hx Arthritis, Reports Hx Musculoskeletal Deformity, Reports Hx Musculoskeletal Trauma Psychiatric Medical History: Reports: Hx Attention Deficit Hyperactivity Disorder, Hx Post Traumatic Stress Disorder Traumatic Medical History: Reports: Hx Fractures - multiple Past Surgical History: Reports: Hx Appendectomy, Hx Orthopedic Surgery - skull repair - Immunizations Immunizations up to date: Yes Hx Diphtheria, Pertussis, Tetanus Vaccination: Yes - 2017 [employer] Provider Document - CONSTITUTIONAL Agree With Documented VS: Yes Notes: GENERAL: Alert, interacts well. No acute distress. HEAD: Normocephalic, atraumatic. EYES: Pupils equal, round, and reactive to light. Extraocular movements intact. ENT: Oral mucosa moist, tongue midline. NECK: Full range of motion. Supple. Trachea midline. LUNGS: Clear to auscultation bilaterally, no wheezes, rales, or rhonchi. No respiratory distress. HEART: Regular rate and rhythm. No murmur ABDOMEN: Soft, non-tender. Non-distended. Bowel sounds present in all 4 quadrants. EXTREMITIES: Moves all 4 extremities spontaneously. normal radial and dorsalis pedis pulses bilaterally. No cyanosis. Mild edema noted medial aspect of patient's left knee. Patient has pain upon valgus and varus movements. No pain upon anterior draw. BACK: no cervical, thoracic, lumbar midline tenderness. No saddle anesthesia, normal distal neurovascular exam. NEUROLOGICAL: Alert and oriented x3. Normal speech. cranial nerves II through XII grossly intact. PSYCH: Normal affect, normal mood. SKIN: Warm, dry, normal turgor. No rashes or lesions noted. - INFECTION CONTROL TRAVEL OUTSIDE OF THE [place] IN LAST 30 DAYS: No Course - Re-evaluation Re-evalutation: 08/05/18 04:33 Patient's x-rays are negative for fracture no signs of effusion. Discussed knee immobilizer and crutches. Discussed following up with orthopedics and return precaution patient voices understanding. Stable for discharge. - Vital Signs Vital signs: Temp Pulse Resp BP Pulse Ox 98.1 F 77 20 130/74 H 100 08/05/18 02:08 08/05/18 02:08 08/05/18 02:08 08/05/18 02:08 08/05/18 02:08 Discharge - Discharge Clinical Impression: Left knee injury Qualifiers: Encounter type: initial encounter Qualified Code(s): S89.92XA - Unspecified injury of left lower leg, initial encounter Condition: Stable Disposition: HOME, SELF-CARE Instructions: Use of Crutches ([facility]), Ice & Elevation ([facility]), Knee Immobilizing Splint ([facility]), Sprained Knee ([facility]), Suspected Internal Knee Injury ([facility]) Additional Instructions: As we discussed your x-rays are negative for fracture. Please follow-up with your primary care provider or orthopedics. Please return to the emergency room for any other concerning symptoms. Forms: Return to Work
[2018-08-05 05:00] VITALS: BP 123/75
== END 2018-08-05 04:54 | disposition home or self-care (01) ==
LOC: ER 01:57
DX: S89.92XA Unspecified injury of left lower leg, initial encounter (principal); M25.562 Pain in left knee; F17.200 Nicotine dependence, unspecified, uncomplicated; W19.XXXA Unspecified fall, initial encounter
CPT/HCPCS: 99283; 73564; L1830; J3490

== ENCOUNTER → 2018-11-29 | Outpatient (CLI) | payer MEDICAID ==
[2018-11-29 15:59] LABS: A TYPE INFLUENZA AG NEGATIVE (NEGATIVE); B INFLUENZA AG NEGATIVE (NEGATIVE)
== END ==
LOC: OD 15:13
PROVIDERS: ATTEND Nurse Practitioner Acute Care
DX: R50.9 Fever, unspecified (principal)
CPT/HCPCS: 87804